=== PATIENT | male | born 2000 | race American Indian/Alaskan Native ===

== ENCOUNTER 2023-04-20 19:19 | Emergency (ER) | payer SELFPAY ==
[2023-04-20 21:18] LABS: T3 FREE 3.98 pg/mL (2.18-3.98); T4 FREE 1.21 ng/dL (0.76-1.46); TSH ULTRASENSITIVE 1.45 uIU/mL (0.36-3.74)
== END 2023-04-20 21:41 | disposition home or self-care (01) ==
LOC: MW.ED 19:19
DX: J02.9 Acute pharyngitis, unspecified (principal); Z86.16 Personal history of COVID-19
CPT/HCPCS: 36415; 84439; 84443; 84481; 99283

== ENCOUNTER 2024-07-17 13:24 | Emergency (ER) | payer SELFPAY ==
[2024-07-17] MEDS: Diphtheria,Pertussis(Acell),Tetanus Vaccine 0.5 ML Syringe IM ONE (15:04)
[2024-07-17] MEDS: Lidocaine 1% 5 ML VIAL INJECT ONE (15:04)
== END 2024-07-17 15:50 | disposition home or self-care (01) ==
LOC: MW.ED 13:24
DX: S61.313A Laceration without foreign body of left middle finger with damage to nail, initial encounter (principal); Z75.8 Other problems related to medical facilities and other health care; Z23 Encounter for immunization; W23.1XXA Caught, crushed, jammed, or pinched between stationary objects, initial encounter
CPT/HCPCS: 12001; 73130-26-LT; 73130-LT; 90471; 90715; 99282; 99283-25; J3490